=== PATIENT | female | born 1985 | race African-American/Black ===

== ENCOUNTER 2022-08-04 17:00 | Emergency (ER) | payer MEDICAID ==
[~2022-08-04] VITALS: Ht 152.4 cm; Wt 149.2 kg
[2022-08-04 17:00] VITALS: BP 156/111
--- NOTE | 2022-08-04 17:04 | NUR ---
pt placed in room 6 by breanna
[2022-08-04] MEDS ORDERED: HALOPERIDOL IM 5 MG/ML VIAL ONE (17:07)
[2022-08-04] MEDS ORDERED: MIDAZOLAM 5 MG/1 ML VIAL ONE (17:07)
[2022-08-04] MEDS ORDERED: HALOPERIDOL IM 5 MG/ML VIAL IM ONE ×2 (17:10)
[2022-08-04] MEDS ORDERED: MIDAZOLAM 5 MG/1 ML VIAL IM ONE (17:10)
[2022-08-04] MEDS ORDERED: MIDAZOLAM 5 MG/5 ML VIAL IM ONE (17:10)
--- NOTE | 2022-08-04 18:00 | NUR ---
37YO FEMALE PT ALEISHA SILVA ON 5150 HOLD. PER [facility], PT ON HOLD BY PD DUE TO PT YELLING , RUNNING AGAINST TRAFFIC AND SWINGING AT CARS. STATE PT VERBALIZED DRUG USE. AT ARRIVAL PT UNCOOPERATIVE W/ STAFF OR ASSESSMENT. "I TOLD THEM THAT WOULD HAPPEN IF I WENT INTO THAT STORE". ROOM STRIPPED OF POTENTIAL HARMFUL ITEMS. PT CHANGED INTO GOWN AND IN VIEW. BED AT LOWEST POSITION, BED RAILS UPX2. HX:HTN, DIABETES, HIV+ , "PSYCH"-UNOBTAINABLE ALLERGIES: PENICILLIN, PREDNISONE
[2022-08-04] MEDS ORDERED: ZIPRASIDONE MESYLATE 20 MG/ML VIAL IM ONE ×2 (18:15→19:42)
--- NOTE | 2022-08-04 18:30 | NUR ---
pt swabbed for covid(jimenez)and flu. handed to lab
[2022-08-04 18:31] LABS: BASOPHILS # (AUTO) 0.1 K/uL (0.00-0.22); BASOPHILS % (AUTO) 0.4 % (0.0-2.0); EOSINOPHILS # (AUTO) 0.1 K/uL (0-0.4); EOSINOPHILS % (AUTO) 0.7 % (0.0-4.0); HEMATOCRIT 32.2 % (36-48); HEMOGLOBIN 10.3 g/dL (12.0-16.0); LYMPHOCYTES # (AUTO) 1.8 K/uL (2.5-16.5); MEAN CORPUSCULAR HEMOGLOBIN 25 pg (27-31); MEAN CORPUSCULAR HGB CONC 32 g/dL (33-37); MEAN CORPUSCULAR VOLUME 78.1 fL (80-94); MONOCYTES # (AUTO) 0.6 K/uL (0.8-1.0); MONOCYTES % (AUTO) 4.6 % (1.7-9.3); NEUTROPHILS # (AUTO) 11.3 K/uL (1.8-7.7); NEUTROPHILS % (AUTO) 81.3 % (42.2-75.2); PLATELET COUNT (AUTO) 314 K/uL (140-450); RED BLOOD CELL COUNT(AUTO) 4.13 MIL/uL (4.20-5.40); RED CELL DISTRIBUTION WIDTH 15.1 % (11.6-13.7); WHITE BLOOD COUNT (AUTO) 13.9 K/uL (4.8-10.8)
[2022-08-04 19:01] LABS: ALBUMIN 3.8 g/dL (3.4-5.0); ANION GAP 14.2 (8-16); ASPARTATE AMINOTRANSFERASE 64 U/L (15-37); CARBON DIOXIDE 24.9 mmol/L (21-32); CHLORIDE 108 mmol/L (98-107); CREATININE 1.1 mg/dL (0.6-1.3); GFR ARICAN-AMERICAN 71 mL/min (>90); GLUCOSE 86 mg/dL (74-106); POTASSIUM 3.1 mmol/L (3.5-5.1); SODIUM SERUM 144 mmol/L (136-145); THYROID STIMULATING HORMONE 1.44 uIU/mL (0.34-3.74); TOTAL BILIRUBIN 0.4 mg/dL (0.0-1.0); UREA NITROGEN, BLOOD 25 mg/dL (7-18)
[2022-08-04 19:02] LABS: SALICYLATE < 2.8 mg/dL (2.8-20.0)
[2022-08-04 19:03] LABS: ACETAMINOPHEN < 0.5 ug/ml (10-30)
[2022-08-04] MEDS ORDERED: POTASSIUM CHLORIDE 10 MEQ TABER PO ONE ×2 (20:10→21:24)
--- NOTE | 2022-08-04 20:11 | NUR ---
per pt is medically cleared.
--- NOTE | 2022-08-04 20:39 | NUR ---
PT ASLEEP WITH HOB ELEVATED . PT IS ON A 5150 SI HOLD. PT WAS FOUND RUNNING IS STREETS WAVING A OBJECT IN AND OUT OF TRAFFIC. HAS HX OF SI IN PAST. TELEPYSCH TO EVAL PT IN AM. ALL ITEMS REMOVED FROM ROOM FOR PT SAFTEY. ALL PERSONAL BELONGINGS WITH SECURITY. PT IS IN VIEW FROM NURSING STATION. UNKNOWN UNKNOWN
--- NOTE | 2022-08-04 23:45 | NUR ---
PT UP TO BATHROOM WITH STEADY GAIT. FOOD PROVIDED FOR PT. PT IS MORE ALERT AND ANSWERING QUESTIONS APPROPREITLY. PT DENIES ANY SI THOUGHTS OR PLANS. PENDING TELEPYSCH EVAL.
--- NOTE | 2022-08-04 23:48 | NUR ---
URINE COLLECTED AND SENT TO LAB
[2022-08-05 00:11] LABS: BARBITURATE, URINE NEGATIVE ng/ml (NEG <=200); BENZODIAZEPINE, URINE NEGATIVE ng/mL (NEG <=200); CANNABINOID, URINE POSITIVE ng/mL (NEG <=50); COCAINE, URINE NEGATIVE ng/mL (NEG <=300); OPIATE, URINE NEGATIVE ng/mL (NEG <=2000); PHENCYCLIDINE SCREEN,URINE NEGATIVE ng/mL (NEG <=25)
--- NOTE | 2022-08-05 00:38 | NUR ---
REPORT GIVEN TO , STATES HE WILL CALL BACK FOR PSYCH CONSULT WITH PT.
--- NOTE | 2022-08-05 00:51 | NUR ---
Miguel terrell in [facility] - 08/05/22 at 0052 by [facility] ON TELEPSYCH WITH PT
--- NOTE | 2022-08-05 01:49 | NUR ---
on telepsych with pt.
--- NOTE | 2022-08-05 02:16 | NUR ---
RECIEVED ORDERS FROM DR SEYMOUR . PT WILL CONTINUE 5150 HOLD AND PLACEMENT FOR [facility].
[2022-08-05] MEDS ORDERED: carBAMazepine 200 MG TAB PO SCH (02:40)
[2022-08-05] MEDS ORDERED: OLANZapine 5 MG TAB PO SCH ×2 (02:50→09:00)
--- NOTE | 2022-08-05 04:42 | NUR ---
PT ASLEEP RESP EVEN AND UNLABORED. PENDING ACCTPANCE FOR TRANSER TO HIGHER LEVEL OF CARE
--- NOTE | 2022-08-05 07:25 | NUR ---
REPORT RECEIVED FROM MACK LUEVANO. ASSUMED CARE AT THIS TIME
--- NOTE | 2022-08-05 07:25 | NUR ---
REPORT RECEIVED FROM MACK LUEVANO. ASSUMED CARE AT THIS TIME
--- NOTE | 2022-08-05 07:35 | NUR ---
pt at rest in supine w/ eyes closed . in view, bed at lowest position , bed rails upx2
[2022-08-05] MEDS ORDERED: IBUPROFEN 800 MG TAB PO ONE (08:40)
--- NOTE | 2022-08-05 08:41 | NUR ---
pt provided with breakfast. awake and eating in bed.
[2022-08-05] MEDS: OLANZapine 5 MG TAB PO SCH ×2 (08:58→21:19)
[2022-08-05] MEDS: carBAMazepine 200 MG TAB PO SCH ×2 (08:59→21:14)
--- NOTE | 2022-08-05 11:46 | NUR ---
pt provided w/ lunch. pt awake , repositioned and eating in bed
--- NOTE | 2022-08-05 13:30 | NUR ---
Packet has been fax to the following facilities [facility]
--- NOTE | 2022-08-05 18:12 | NUR ---
pt provided w/ dinner. pt awake and eating in bed
--- NOTE | 2022-08-05 19:13 | NUR ---
REPORT GIVEN TO NONI LUEVANO. TRANSFER OF CARE AT THIS TIME
--- NOTE | 2022-08-05 19:50 | NUR ---
37 Y/O PT IS ON A 51/50 HOLD PER [facility] DUE TO PT YELLING, WALKING AGAINST TRAFFIC AND SWINGING AT CARS. POSSIBLE DRUG USE, PT IS AMBULATORY AND SLEEPING. PMH- HTN. DIABETES ALLERGIES-PENICILLIN, PREDNISONE
--- NOTE | 2022-08-05 20:37 | NUR ---
PT SLEEPING, RESPIRATIONS EVEN AND UNLABORED.
--- NOTE | 2022-08-05 21:36 | NUR ---
PACKET FAXED OUT FOR ACCTEPANCE TO TRANSFER . PENDING ACCTPANCE
[2022-08-05] MEDS ORDERED: KETOROLAC 15 MG/ML VIAL IVP ONE (22:15)
[2022-08-05] MEDS ORDERED: KETOROLAC 15 MG/ML VIAL IM ONE (22:20)
--- NOTE | 2022-08-05 23:27 | NUR ---
FOOD PROVIDED TO PT
--- NOTE | 2022-08-06 01:16 | NUR ---
PT ASLEEP RESP EVEN AND UNLABORED. PENDING ACCEPTANCE FOR TRANSFER
--- NOTE | 2022-08-06 04:06 | NUR ---
PT SLEEPING, TOLERATED FOOD WELL.
--- NOTE | 2022-08-06 07:04 | NUR ---
PT AWAKE AND ALERT, TOLERATING FOOD WELL. PENDING TRANSFER
--- NOTE | 2022-08-06 07:13 | NUR ---
Received report from BASSEM Ricardo for transfer of care.
--- NOTE | 2022-08-06 08:45 | NUR ---
Patient was offered breakfast tray. Patient is eating breakfast.
[2022-08-06] MEDS ORDERED: CRUSHER, PILL MC ONE (09:16)
[2022-08-06] MEDS: OLANZapine 5 MG TAB PO SCH ×2 (10:18→21:20)
[2022-08-06] MEDS: carBAMazepine 200 MG TAB PO SCH ×2 (10:19→21:20)
--- NOTE | 2022-08-06 10:22 | NUR ---
Patient was offered snacks. Patient is alert and verbally responsive.
--- NOTE | 2022-08-06 11:35 | NUR ---
Patient ambulated to restroom with steady gait.
--- NOTE | 2022-08-06 11:45 | NUR ---
Patient went to take a shower with secutiry and SENIOR RESEARCH MANAGER to monitor.
--- NOTE | 2022-08-06 12:04 | NUR ---
Patient was offered lunch tray. Patient is sitting up eating lunch.
--- NOTE | 2022-08-06 14:36 | NUR ---
Patient ambulated to restroom with steady gait.
--- NOTE | 2022-08-06 16:31 | NUR ---
Patient is laying in bed, respirations even and unlabored. Frequent visual rounds being made.
--- NOTE | 2022-08-06 18:11 | NUR ---
Patient was offered dinner tray, patient is sitting up eating dinner.
--- NOTE | 2022-08-06 19:20 | NUR ---
Report given to RACHELLE Nguyen and RACHELLE Vera for transfer of care.
--- NOTE | 2022-08-06 19:40 | NUR ---
Noted rested comfortably at this time. No s/s discomfort.
--- NOTE | 2022-08-06 21:30 | NUR ---
Pt resting comfortably at this time. No c/o discomfort. [place] and juice provided.
--- NOTE | 2022-08-06 22:50 | NUR ---
Packet has been faxed to the following facilities [facility]
--- NOTE | 2022-08-07 00:12 | NUR ---
Pt sitting in bed, provided sandwich and juice
--- NOTE | 2022-08-07 02:15 | NUR ---
Pt ambulated to restroom. Gait steady.
--- NOTE | 2022-08-07 03:45 | NUR ---
Pt resting comfortably at this time.no c/o discomfort.
--- NOTE | 2022-08-07 07:20 | NUR ---
Report recived from RACHELLE Vera for transfer of care.
--- NOTE | 2022-08-07 07:21 | NUR ---
[facility]
--- NOTE | 2022-08-07 07:47 | NUR ---
Patient was offered breakfast tray, patient sitting up eating.
--- NOTE | 2022-08-07 09:06 | NUR ---
Patient ambulated to restroom with steady gait.
--- NOTE | 2022-08-07 09:14 | NUR ---
Patient requesting to call sister, called sister phone number not available. Patient made aware.
--- NOTE | 2022-08-07 10:14 | NUR ---
MD CAREY DOING TELE PSYCH CONSULT AT THIS TIME
--- NOTE | 2022-08-07 10:16 | NUR ---
Per Dr. Douglas, patient is clear to go home once hold is up.
[2022-08-07] MEDS: carBAMazepine 200 MG TAB PO SCH (10:39)
--- NOTE | 2022-08-07 12:06 | NUR ---
Patient was offered her lunch tray. Tray left at bedside.
--- NOTE | 2022-08-07 12:12 | NUR ---
Patient ambulated to restroom with steady gait.
[2022-08-07 13:34] VITALS: BP 141/87
--- NOTE | 2022-08-07 13:34 | NUR ---
Patient discharged with v/s stable. Written and verbal after care instructions given. Patient verbalized understanding. Ambulatory with steady gait. All questions addressed prior to discharge. Advised to follow up with PMD.
--- NOTE | 2022-08-07 13:35 | NUR ---
The patient's care was reviewed and supervised by Liset Olmedo, RN, RN.
[2022-08-07] MEDS ORDERED: OLANZapine 5 MG TAB PO SCH (21:00)
== END 2022-08-07 13:34 | disposition home or self-care (01) ==
LOC: MED 17:00
DX: R45.1 Restlessness and agitation (principal); Z20.822 Contact with and (suspected) exposure to COVID-19; I10 Essential (primary) hypertension; E11.9 Type 2 diabetes mellitus without complications; Z79.4 Long term (current) use of insulin; Z79.899 Other long term (current) drug therapy
CPT/HCPCS: 36415; 80053; 80305; 81025; 82550; 82553; 84443; 85025; 87426; 87635; 93005; 96372; 99285; C9803; G0480; G0482; J1630; J1885; J2250; J3486